=== PATIENT | male | born 1995 | race African-American/Black ===

== ENCOUNTER 2020-10-29 08:41 | Emergency (ER) | payer MEDICAID, OTHER ==
[~2020-10-29] VITALS: Ht 170.2 cm; Wt 81.6 kg
[2020-10-29 09:12] VITALS: BP 127/89
== END 2020-10-29 09:37 | disposition home or self-care (01) ==
LOC: ER 08:41
DX: N34.2 Other urethritis (principal); F17.210 Nicotine dependence, cigarettes, uncomplicated

== ENCOUNTER 2020-12-15 22:38 | Emergency (ER) | payer MEDICAID ==
[~2020-12-15] VITALS: Ht 170.2 cm; Wt 77.1 kg
[2020-12-15 22:55] VITALS: BP 105/66
== END 2020-12-16 03:02 | disposition home or self-care (01) ==
LOC: ER 22:38
DX: U07.1 COVID-19 (principal); F17.210 Nicotine dependence, cigarettes, uncomplicated
CPT/HCPCS: 36415; 87426